=== PATIENT | male | born 1950 | race Caucasian/White ===

== ENCOUNTER 2021-12-12 18:25 | Inpatient (IN) ==
[2021-12-12] MEDS: 0.9 % Sodium Chloride 1,000 ML IVC SCH ×2 (19:05→19:51)
[2021-12-12 19:06] LABS: Basophils % 0.4 %; Eosinophils # 0.1 K/mcL (0.0-0.6); Eosinophils % 0.9 %; Hematocrit 33.7 % (37.5-50.1); Hemoglobin 11.8 g/dL (12.9-16.9); Immature Granulocytes % 1.1 % (0-4); Lymphocytes # 2.1 K/mcL (0.6-4.6); Lymphocytes % 21.8 %; Mean Corpuscular Hemoglobin 35.8 pg (28.0-33.3); Mean Corpuscular Volume 102.1 fL (83.0-100.0); Mean Platelet Volume 9.4 fL (9.4-12.4); Monocytes # 0.9 K/mcL (0.0-1.3); Monocytes % 9.4 %; Neutrophils # 6.4 K/mcL (1.6-8.9); Platelet Count 262 K/mcL (140-400); Red Cell Distribution Width 12.9 % (11.5-14.5); Segmented Neutrophils % 66.4 %; White Blood Count 9.6 K/mcL (4.3-11.1)
[2021-12-12 19:32] LABS: INR 1.1; Prothrombin Time 12.1 Seconds (9.4-12.1)
[2021-12-12 19:34] LABS: Activated Partial Thrombo Time 23.7 Seconds (26.0-36.0)
[2021-12-12 19:36] LABS: BUN/Creatinine Ratio 7 (6-26); Blood Urea Nitrogen 19 mg/dL (8-23); Calcium 7.7 mg/dL (8.6-10.3); Carbon Dioxide 22 mEq/L (23-29); Chloride 109 mEq/L (98-107); Glucose 89 mg/dL (70-105); Osmolality,Calculated 292 (280-300); Potassium 3.7 mEq/L (3.5-5.1); Sodium 140 mEq/L (136-145); Troponin I < 0.03 ng/mL (< 0.04); eGFR For African Americans 27 (> 60); eGFR For Non-African Americans 22 (> 60)
[2021-12-12] MEDS ORDERED: Acetaminophen 325 MG TABLET PO PRN (22:26)
[2021-12-12] MEDS ORDERED: Naloxone 0.4 MG/ML INJ IVP PRN (22:26)
[2021-12-12] MEDS ORDERED: Melatonin 3 MG TABLET PO PRN (22:26)
[2021-12-12] MEDS ORDERED: Ondansetron 4 MG/2 ML VIAL IVP PRN (22:26)
[2021-12-12] MEDS ORDERED: 0.9 % Sodium Chloride 1,000 ML IVC SCH (22:30)
[2021-12-12] MEDS ORDERED: Calcium Gluconate 1gm/50mL 1 GM/50 ML BAG IVPB ONE (22:30)
[2021-12-12] MEDS ORDERED: 0.9 % Sodium Chloride 1,000 ML IVC ONE (23:24)
[2021-12-13] MEDS ORDERED: *HR* LORazepam 2 MG/ML VIAL IVP PRN ×3 (00:17)
[2021-12-13] MEDS: 0.9 % Sodium Chloride 1,000 ML IVC SCH ×2 (02:24→09:14)
[2021-12-13 04:43] LABS: Basophils % 0.2 %; Eosinophils % 0.3 %; Hematocrit 32.7 % (37.5-50.1); Hemoglobin 10.9 g/dL (12.9-16.9); Immature Granulocytes % 0.6 % (0-4); Lymphocytes # 2.6 K/mcL (0.6-4.6); Lymphocytes % 25.8 %; Mean Corpuscular HGB Conc 33.3 g/dL (31.6-35.5); Mean Corpuscular Hemoglobin 34.5 pg (28.0-33.3); Mean Corpuscular Volume 103.5 fL (83.0-100.0); Mean Platelet Volume 9.7 fL (9.4-12.4); Monocytes # 0.9 K/mcL (0.0-1.3); Monocytes % 8.4 %; Neutrophils # 6.6 K/mcL (1.6-8.9); Platelet Count 238 K/mcL (140-400); Red Blood Count 3.16 M/mcL (4.19-5.50); Segmented Neutrophils % 64.7 %; White Blood Count 10.2 K/mcL (4.3-11.1)
[2021-12-13 04:50] LABS: INR 1.1; Prothrombin Time 12.2 Seconds (9.4-12.1)
[2021-12-13 05:05] LABS: Alanine Aminotransferase 5 Units/L (7-52); Albumin 2.4 g/dL (3.5-5.7); Albumin/Globulin Ratio 1.1 (1.1-2.2); Alkaline Phosphatase 59 Units/L (34-104); Aspartate Amino Transferase 13 Units/L (13-39); BUN/Creatinine Ratio 9 (6-26); Bilirubin,Total 0.5 mg/dL (0.3-1.0); Blood Urea Nitrogen 16 mg/dL (8-23); Calcium 7.2 mg/dL (8.6-10.3); Carbon Dioxide 19 mEq/L (23-29); Chloride 117 mEq/L (98-107); Globulin 2.2 g/dL (2.4-3.5); Glucose 83 mg/dL (70-105); Osmolality,Calculated 292 (280-300); Phosphorous 2.8 mg/dL (2.7-4.5); Potassium 4.2 mEq/L (3.5-5.1); Sodium 141 mEq/L (136-145); Total Protein 4.6 g/dL (6.4-8.9); Troponin I < 0.03 ng/mL (< 0.04); eGFR For African Americans 47 (> 60); eGFR For Non-African Americans 39 (> 60)
[2021-12-13] MEDS ORDERED: 0.9 % Sodium Chloride 1,000 ML IVC ONE (06:00)
[2021-12-13] MEDS ORDERED: Perflutren Lipid Microsphere 1.3 ML in 0.9 % Sodium Chloride 8.7 ML IVP PRN ×2 (07:38→15:52)
[2021-12-13 08:02] LABS: Bacteria,Urine Moderate per hpf (None-Few); Bilirubin,Urine Negative (Negative); Blood,Urine Trace (Negative); Clarity,Urine Turbid (Clear); Color,Urine Yellow (Yellow); Glucose,Urine (UA) Normal (Normal); Hyaline Casts,Urine Few per lpf (None Seen); Ketones,Urine Trace mg/dL (Negative); Leukocyte Esterase,Urine Large (Negative); Mucus,Urine Few per lpf (None-Few); Nitrite,Urine Negative (Negative); Protein,Urine 30 mg/dL (Neg-Trace); RBC,Urine 0-3 per hpf (0-3); Specific Gravity,Urine 1.022 (1.010-1.025); Squamous Epithelial Cell,Urine Few per hpf (None-Few); Transitional Epi Cells,Urine Few per hpf (None-Few); WBC,Urine 30-50 per hpf (0-3)
[2021-12-13 08:08] LABS: Sodium, Urine 63.4 mEq/L
[2021-12-13] MEDS ORDERED: Ringers Solution, Lactated 500 ML IVC ONE (15:09)
[2021-12-13] MEDS: Ringers Solution, Lactated 1,000 ML IVC SCH (16:21)
[2021-12-13 17:57] LABS: Adenovirus Not Detected (Not Detect); Bordetella Pertussis Not Detected (Not Detect); Chlamydophila pneumoniae Not Detected (Not Detect); Coronavirus 229E Not Detected (Not Detect); Coronavirus HKU1 Not Detected (Not Detect); Coronavirus NL63 Not Detected (Not Detect); Coronavirus OC43 Not Detected (Not Detect); Human Metapneumovirus Not Detected (Not Detect); Human Rhinovirus/Enterovirus Not Detected (Not Detect); Influenza A Subtype 2009 H1 Not Detected (Not Detect); Influenza B Not Detected (Not Detect); Mycoplasma pneumoniae Not Detected (Not Detect); Parainfluenza Virus 1 Not Detected (Not Detect); Parainfluenza Virus 2 Not Detected (Not Detect); Parainfluenza Virus 3 Not Detected (Not Detect); Parainfluenza Virus 4 Not Detected (Not Detect); Respiratory Syncytial Virus Not Detected (Not Detect); SARS-CoV-2 Not Detected (Not Detect)
[2021-12-13 19:12] LABS: Hematocrit 29.3 % (37.5-50.1); Hemoglobin 10.1 g/dL (12.9-16.9)
[2021-12-13] MEDS: Thiamine (B-1) 100 MG, Folic Acid 1 MG, MVI, adult with vitamin K 10 ML in 0.9 % Sodi... IVPB SCH (20:25)
[2021-12-14] MEDS: Ringers Solution, Lactated 1,000 ML IVC SCH ×4 (01:24→22:47)
[2021-12-14] MEDS ORDERED: Ringers Solution, Lactated 500 ML IVC ONE ×2 (05:32→10:01)
[2021-12-14 05:44] LABS: Basophils % 0.2 %; Eosinophils # 0.1 K/mcL (0.0-0.6); Eosinophils % 1.1 %; Hematocrit 27.3 % (37.5-50.1); Hemoglobin 9.5 g/dL (12.9-16.9); Immature Granulocytes % 0.3 % (0-4); Lymphocytes # 2.1 K/mcL (0.6-4.6); Lymphocytes % 20.1 %; Mean Corpuscular HGB Conc 34.8 g/dL (31.6-35.5); Mean Corpuscular Hemoglobin 35.2 pg (28.0-33.3); Mean Corpuscular Volume 101.1 fL (83.0-100.0); Mean Platelet Volume 9.8 fL (9.4-12.4); Monocytes # 0.7 K/mcL (0.0-1.3); Monocytes % 6.8 %; Neutrophils # 7.5 K/mcL (1.6-8.9); Platelet Count 212 K/mcL (140-400); Red Cell Distribution Width 12.9 % (11.5-14.5); Segmented Neutrophils % 71.5 %; White Blood Count 10.4 K/mcL (4.3-11.1)
[2021-12-14 05:55] LABS: INR 1.2; Prothrombin Time 12.9 Seconds (9.4-12.1)
[2021-12-14 06:16] LABS: Alanine Aminotransferase 5 Units/L (7-52); Albumin 2.1 g/dL (3.5-5.7); Albumin/Globulin Ratio 1.1 (1.1-2.2); Alkaline Phosphatase 54 Units/L (34-104); Aspartate Amino Transferase 14 Units/L (13-39); BUN/Creatinine Ratio 14 (6-26); Bilirubin,Total 0.7 mg/dL (0.3-1.0); Blood Urea Nitrogen 10 mg/dL (8-23); Calcium 6.8 mg/dL (8.6-10.3); Carbon Dioxide 18 mEq/L (23-29); Chloride 115 mEq/L (98-107); Globulin 1.9 g/dL (2.4-3.5); Glucose 85 mg/dL (70-105); Magnesium 1.3 mg/dL (1.6-2.6); Osmolality,Calculated 284 (280-300); Potassium 3.7 mEq/L (3.5-5.1); Sodium 138 mEq/L (136-145); eGFR For African Americans > 60 (> 60); eGFR For Non-African Americans > 60 (> 60)
[2021-12-14 09:22] LABS: Thyroid Stimulating Hormone 0.244 mcIU/mL (0.340-5.600)
[2021-12-14 11:00] LABS: Triiodothyronine (T3) Free 1.55 pg/mL (2.50-3.90)
[2021-12-14 12:56] LABS: Bacteria,Urine Few per hpf (None-Few); Bilirubin,Urine Negative (Negative); Blood,Urine Small (Negative); Clarity,Urine Turbid (Clear); Color,Urine Yellow (Yellow); Glucose,Urine (UA) Normal (Normal); Ketones,Urine Negative (Negative); Leukocyte Esterase,Urine Small (Negative); Mucus,Urine Few per lpf (None-Few); Nitrite,Urine Negative (Negative); Protein,Urine Trace mg/dL (Neg-Trace); Specific Gravity,Urine 1.018 (1.010-1.025); Squamous Epithelial Cell,Urine Few per hpf (None-Few)
[2021-12-14] MEDS ORDERED: cefTRIAXone 1,000 MG in 0.9 % Sodium Chloride 10 ML IVPB SCH (13:00)
[2021-12-14] MEDS ORDERED: Calcium Gluconate 1gm/50mL 1 GM/50 ML BAG IVPB ONE (14:00)
[2021-12-14] MEDS: Thiamine (B-1) 100 MG, Folic Acid 1 MG, MVI, adult with vitamin K 10 ML in 0.9 % Sodi... IVPB SCH (17:23)
[2021-12-14] MEDS: Albumin Human 5% 12.5 GM/250 ML IV.SOLN IVC SCH ×2 (17:34→18:38)
[2021-12-15] MEDS ORDERED: Ipratropium/Albuterol Neb 3 ML IH ONE (04:16)
[2021-12-15 04:17] LABS: Basophils % 0.2 %; Eosinophils # 0.1 K/mcL (0.0-0.6); Eosinophils % 1.3 %; Hematocrit 25.5 % (37.5-50.1); Hemoglobin 9.1 g/dL (12.9-16.9); Immature Granulocytes % 0.4 % (0-4); Lymphocytes # 1.8 K/mcL (0.6-4.6); Lymphocytes % 17.7 %; Mean Corpuscular HGB Conc 35.7 g/dL (31.6-35.5); Mean Corpuscular Hemoglobin 35.3 pg (28.0-33.3); Mean Corpuscular Volume 98.8 fL (83.0-100.0); Mean Platelet Volume 9.8 fL (9.4-12.4); Monocytes # 0.9 K/mcL (0.0-1.3); Monocytes % 8.6 %; Neutrophils # 7.1 K/mcL (1.6-8.9); Platelet Count 223 K/mcL (140-400); Red Blood Count 2.58 M/mcL (4.19-5.50); Red Cell Distribution Width 12.4 % (11.5-14.5); Segmented Neutrophils % 71.8 %; White Blood Count 9.9 K/mcL (4.3-11.1)
[2021-12-15 05:00] LABS: Alanine Aminotransferase 4 Units/L (7-52); Albumin 2.5 g/dL (3.5-5.7); Albumin/Globulin Ratio 1.6 (1.1-2.2); Alkaline Phosphatase 49 Units/L (34-104); Aspartate Amino Transferase 12 Units/L (13-39); BUN/Creatinine Ratio 11 (6-26); Bilirubin,Total 0.5 mg/dL (0.3-1.0); Blood Urea Nitrogen 6 mg/dL (8-23); Calcium 7.3 mg/dL (8.6-10.3); Carbon Dioxide 21 mEq/L (23-29); Chloride 113 mEq/L (98-107); Globulin 1.6 g/dL (2.4-3.5); Glucose 89 mg/dL (70-105); Magnesium 1.4 mg/dL (1.6-2.6); Osmolality,Calculated 285 (280-300); Potassium 3.5 mEq/L (3.5-5.1); Sodium 139 mEq/L (136-145); Total Protein 4.1 g/dL (6.4-8.9); eGFR For African Americans > 60 (> 60); eGFR For Non-African Americans > 60 (> 60)
[2021-12-15 05:25] LABS: Folate > 22.3 ng/mL (3.0-16.0); Vitamin B12 289 pg/mL (250-1100)
[2021-12-15] MEDS ORDERED: Calcium Gluconate 1gm/50mL 1 GM/50 ML BAG IVPB ONE (07:40)
[2021-12-15] MEDS ORDERED: Ringers Solution, Lactated 1,000 ML IVC SCH (07:45)
[2021-12-15] MEDS: Piperacillin/Tazobactam 3.375 GM in 0.9 % Sodium Chloride Mini Bag 100 ML IVPB SCH ×2 (09:38→15:58)
[2021-12-15] MEDS: Thiamine (B-1) 100 MG, Folic Acid 1 MG, MVI, adult with vitamin K 10 ML in 0.9 % Sodi... IVPB SCH (17:11)
[2021-12-16] MEDS: Piperacillin/Tazobactam 3.375 GM in 0.9 % Sodium Chloride Mini Bag 100 ML IVPB SCH ×3 (03:32→16:16)
[2021-12-16 05:05] LABS: Basophils % 0.2 %; Eosinophils # 0.1 K/mcL (0.0-0.6); Eosinophils % 1.2 %; Hematocrit 26.8 % (37.5-50.1); Hemoglobin 9.3 g/dL (12.9-16.9); Immature Granulocytes % 0.4 % (0-4); Lymphocytes # 1.4 K/mcL (0.6-4.6); Lymphocytes % 11.7 %; Mean Corpuscular HGB Conc 34.7 g/dL (31.6-35.5); Mean Corpuscular Hemoglobin 34.4 pg (28.0-33.3); Mean Corpuscular Volume 99.3 fL (83.0-100.0); Mean Platelet Volume 9.2 fL (9.4-12.4); Monocytes # 1.2 K/mcL (0.0-1.3); Monocytes % 9.7 %; Neutrophils # 9.3 K/mcL (1.6-8.9); Platelet Count 242 K/mcL (140-400); Red Cell Distribution Width 12.8 % (11.5-14.5); Segmented Neutrophils % 76.8 %; White Blood Count 12.1 K/mcL (4.3-11.1)
[2021-12-16 05:17] LABS: Alanine Aminotransferase 5 Units/L (7-52); Albumin 2.4 g/dL (3.5-5.7); Albumin/Globulin Ratio 1.2 (1.1-2.2); Alkaline Phosphatase 52 Units/L (34-104); Aspartate Amino Transferase 12 Units/L (13-39); BUN/Creatinine Ratio 8 (6-26); Bilirubin,Total 0.6 mg/dL (0.3-1.0); Blood Urea Nitrogen 4 mg/dL (8-23); Calcium 7.6 mg/dL (8.6-10.3); Carbon Dioxide 22 mEq/L (23-29); Chloride 111 mEq/L (98-107); Glucose 99 mg/dL (70-105); Magnesium 1.8 mg/dL (1.6-2.6); Osmolality,Calculated 283 (280-300); Potassium 3.6 mEq/L (3.5-5.1); Sodium 138 mEq/L (136-145); Total Protein 4.4 g/dL (6.4-8.9); eGFR For African Americans > 60 (> 60); eGFR For Non-African Americans > 60 (> 60)
[2021-12-16] MEDS ORDERED: Potassium Chloride Elixir 20 MEQ/15 ML UDC PO ONE (07:18)
[2021-12-16] MEDS: Magnesium Oxide 400 MG TABLET PO SCH (08:00)
[2021-12-16] MEDS ORDERED: Furosemide 20 MG/2 ML VIAL IVP ONE (09:06)
[2021-12-16] MEDS ORDERED: Ipratropium Neb 0.5 MG NEBULIZER IH PRN (09:17)
[2021-12-16] MEDS ORDERED: Calcium Gluconate 1gm/50mL 1 GM/50 ML BAG IVPB ONE (09:18)
[2021-12-16] MEDS: Ipratropium/Albuterol Neb 3 ML IH SCH ×4 (11:01→23:15)
[2021-12-16] MEDS ORDERED: E-Z-HD (BARIUM SULF) SUSPENSION PO ONE (12:37)
[2021-12-16] MEDS: E-Z-PAQUE (BARIUM SULF) SUSP 1 BOTTLE PO ONE (12:40)
[2021-12-16] MEDS: *HR* Heparin 5,000 UNIT/ML VIAL SQ SCH (18:23)
[2021-12-17] MEDS: Piperacillin/Tazobactam 3.375 GM in 0.9 % Sodium Chloride Mini Bag 100 ML IVPB SCH ×3 (00:36→16:03)
[2021-12-17] MEDS: Ipratropium/Albuterol Neb 3 ML IH SCH ×6 (03:37→23:05)
[2021-12-17] MEDS: *HR* Heparin 5,000 UNIT/ML VIAL SQ SCH ×2 (06:01→16:03)
[2021-12-17 07:02] LABS: Basophils % 0.2 %; Eosinophils # 0.3 K/mcL (0.0-0.6); Hematocrit 24.6 % (37.5-50.1); Hemoglobin 8.6 g/dL (12.9-16.9); Immature Granulocytes % 0.3 % (0-4); Lymphocytes # 1.3 K/mcL (0.6-4.6); Lymphocytes % 14.5 %; Mean Corpuscular Hemoglobin 34.4 pg (28.0-33.3); Mean Corpuscular Volume 98.4 fL (83.0-100.0); Mean Platelet Volume 9.4 fL (9.4-12.4); Monocytes # 1.1 K/mcL (0.0-1.3); Monocytes % 12.2 %; Neutrophils # 6.3 K/mcL (1.6-8.9); Platelet Count 253 K/mcL (140-400); Red Cell Distribution Width 12.6 % (11.5-14.5); Segmented Neutrophils % 69.8 %
[2021-12-17 07:18] LABS: Alanine Aminotransferase 5 Units/L (7-52); Albumin 2.2 g/dL (3.5-5.7); Albumin/Globulin Ratio 1.2 (1.1-2.2); Alkaline Phosphatase 43 Units/L (34-104); Aspartate Amino Transferase 11 Units/L (13-39); BUN/Creatinine Ratio 10 (6-26); Bilirubin,Total 0.5 mg/dL (0.3-1.0); Blood Urea Nitrogen 6 mg/dL (8-23); Calcium 7.5 mg/dL (8.6-10.3); Carbon Dioxide 27 mEq/L (23-29); Chloride 109 mEq/L (98-107); Globulin 1.9 g/dL (2.4-3.5); Glucose 81 mg/dL (70-105); Magnesium 1.4 mg/dL (1.6-2.6); Osmolality,Calculated 287 (280-300); Potassium 3.7 mEq/L (3.5-5.1); Sodium 140 mEq/L (136-145); Total Protein 4.1 g/dL (6.4-8.9); eGFR For African Americans > 60 (> 60); eGFR For Non-African Americans > 60 (> 60)
[2021-12-17] MEDS: Magnesium Oxide 400 MG TABLET PO SCH (08:59)
[2021-12-17] MEDS ORDERED: Furosemide 20 MG/2 ML VIAL IVP ONE (10:55)
[2021-12-18] MEDS: Piperacillin/Tazobactam 3.375 GM in 0.9 % Sodium Chloride Mini Bag 100 ML IVPB SCH ×3 (00:10→18:18)
[2021-12-18] MEDS: Ipratropium/Albuterol Neb 3 ML IH SCH ×6 (03:36→23:48)
[2021-12-18 05:52] LABS: Basophils % 0.2 %; Eosinophils # 0.2 K/mcL (0.0-0.6); Eosinophils % 2.2 %; Hematocrit 24.3 % (37.5-50.1); Hemoglobin 8.6 g/dL (12.9-16.9); Immature Granulocytes % 0.2 % (0-4); Lymphocytes # 1.5 K/mcL (0.6-4.6); Lymphocytes % 17.9 %; Mean Corpuscular HGB Conc 35.4 g/dL (31.6-35.5); Mean Corpuscular Hemoglobin 34.8 pg (28.0-33.3); Mean Corpuscular Volume 98.4 fL (83.0-100.0); Mean Platelet Volume 9.5 fL (9.4-12.4); Monocytes # 1.1 K/mcL (0.0-1.3); Monocytes % 12.9 %; Neutrophils # 5.4 K/mcL (1.6-8.9); Platelet Count 271 K/mcL (140-400); Red Blood Count 2.47 M/mcL (4.19-5.50); Red Cell Distribution Width 12.7 % (11.5-14.5); Segmented Neutrophils % 66.6 %; White Blood Count 8.1 K/mcL (4.3-11.1)
[2021-12-18 06:11] LABS: Alanine Aminotransferase 5 Units/L (7-52); Albumin 2.2 g/dL (3.5-5.7); Albumin/Globulin Ratio 1.2 (1.1-2.2); Alkaline Phosphatase 44 Units/L (34-104); Aspartate Amino Transferase 12 Units/L (13-39); BUN/Creatinine Ratio 10 (6-26); Bilirubin,Total 0.5 mg/dL (0.3-1.0); Blood Urea Nitrogen 6 mg/dL (8-23); Calcium 7.6 mg/dL (8.6-10.3); Carbon Dioxide 29 mEq/L (23-29); Chloride 105 mEq/L (98-107); Globulin 1.9 g/dL (2.4-3.5); Glucose 78 mg/dL (70-105); Magnesium 1.6 mg/dL (1.6-2.6); Osmolality,Calculated 286 (280-300); Potassium 3.4 mEq/L (3.5-5.1); Sodium 140 mEq/L (136-145); Total Protein 4.1 g/dL (6.4-8.9); eGFR For African Americans > 60 (> 60); eGFR For Non-African Americans > 60 (> 60)
[2021-12-18] MEDS: *HR* Heparin 5,000 UNIT/ML VIAL SQ SCH ×2 (06:36→18:17)
[2021-12-18] MEDS ORDERED: Lidocaine -MPF 2% 5 ML VIAL ONE (09:37)
[2021-12-18] MEDS ORDERED: Ondansetron 4 MG/2 ML VIAL ONE (09:41)
[2021-12-18] MEDS ORDERED: Lidocaine HCL 4 ML Topical Solution (Laryng-O-Jet Kit Sterile Pak) TP ONE (09:42)
[2021-12-18 18:56] LABS: Alanine Aminotransferase 7 Units/L (7-52); Albumin 2.9 g/dL (3.5-5.7); Alkaline Phosphatase 53 Units/L (34-104); Aspartate Amino Transferase 20 Units/L (13-39); BUN/Creatinine Ratio 12 (6-26); Bilirubin,Total 0.5 mg/dL (0.3-1.0); Blood Urea Nitrogen 7 mg/dL (8-23); Calcium 8.4 mg/dL (8.6-10.3); Carbon Dioxide 26 mEq/L (23-29); Chloride 103 mEq/L (98-107); Globulin 2.8 g/dL (2.4-3.5); Glucose 133 mg/dL (70-105); Osmolality,Calculated 288 (280-300); Potassium 4.2 mEq/L (3.5-5.1); Sodium 139 mEq/L (136-145); Total Protein 5.7 g/dL (6.4-8.9); eGFR For African Americans > 60 (> 60); eGFR For Non-African Americans > 60 (> 60)
[2021-12-19] MEDS: Piperacillin/Tazobactam 3.375 GM in 0.9 % Sodium Chloride Mini Bag 100 ML IVPB SCH ×4 (00:12→23:45)
[2021-12-19 02:41] LABS: Basophils % 0.1 %; Hematocrit 24.4 % (37.5-50.1); Hemoglobin 8.6 g/dL (12.9-16.9); Immature Granulocytes % 0.4 % (0-4); Lymphocytes # 0.5 K/mcL (0.6-4.6); Mean Corpuscular HGB Conc 35.2 g/dL (31.6-35.5); Mean Corpuscular Volume 99.2 fL (83.0-100.0); Mean Platelet Volume 9.5 fL (9.4-12.4); Monocytes # 0.4 K/mcL (0.0-1.3); Monocytes % 5.5 %; Neutrophils # 6.8 K/mcL (1.6-8.9); Platelet Count 294 K/mcL (140-400); Red Blood Count 2.46 M/mcL (4.19-5.50); Red Cell Distribution Width 12.6 % (11.5-14.5); White Blood Count 7.7 K/mcL (4.3-11.1)
[2021-12-19 03:06] LABS: BUN/Creatinine Ratio 18 (6-26); Blood Urea Nitrogen 11 mg/dL (8-23); Calcium 7.8 mg/dL (8.6-10.3); Carbon Dioxide 27 mEq/L (23-29); Chloride 106 mEq/L (98-107); Glucose 151 mg/dL (70-105); Osmolality,Calculated 288 (280-300); Potassium 3.7 mEq/L (3.5-5.1); Sodium 138 mEq/L (136-145); eGFR For African Americans > 60 (> 60); eGFR For Non-African Americans > 60 (> 60)
[2021-12-19] MEDS: Ipratropium/Albuterol Neb 3 ML IH SCH ×6 (04:09→22:49)
[2021-12-19] MEDS: *HR* Heparin 5,000 UNIT/ML VIAL SQ SCH ×2 (05:43→16:50)
[2021-12-19 11:30] LABS: RBC,Pleural Fluid < 2000 RBC/mcL
[2021-12-19] MEDS ORDERED: E-Z-PAQUE (BARIUM SULF) SUSP 1 BOTTLE PO ONE (12:32)
[2021-12-19] MEDS ORDERED: E-Z-HD (BARIUM SULF) SUSPENSION PO ONE (12:32)
[2021-12-19] MEDS: E-Z-PAQUE (BARIUM SULF) SUSP 1 BOTTLE PO ONE (12:36)
[2021-12-19 12:38] LABS: Basophils,Pleural Fluid 0 %; Eosinophils,Pleural Fluid 0 %; Monocytes,Pleural Fluid 0 %
[2021-12-19 12:40] LABS: Appearance of Pleural Fl Clear (Clear)
[2021-12-19 12:48] LABS: Glucose,Pleural Fluid 82 mg/dL (No Ref Range); LDH,Pleural Fluid 33 Units/L (No Ref Range); Total Protein,Pleural Fluid < 2.0 g/dL
[2021-12-20 03:13] LABS: Basophils % 0.1 %; Eosinophils % 0.2 %; Hematocrit 23.5 % (37.5-50.1); Hemoglobin 8.2 g/dL (12.9-16.9); Immature Granulocytes % 0.5 % (0-4); Lymphocytes # 1.6 K/mcL (0.6-4.6); Lymphocytes % 13.2 %; Mean Corpuscular HGB Conc 34.9 g/dL (31.6-35.5); Mean Corpuscular Hemoglobin 34.6 pg (28.0-33.3); Mean Corpuscular Volume 99.2 fL (83.0-100.0); Mean Platelet Volume 9.2 fL (9.4-12.4); Monocytes # 0.9 K/mcL (0.0-1.3); Monocytes % 7.5 %; Neutrophils # 9.7 K/mcL (1.6-8.9); Platelet Count 329 K/mcL (140-400); Red Blood Count 2.37 M/mcL (4.19-5.50); Segmented Neutrophils % 78.5 %
[2021-12-20 03:14] LABS: White Blood Count 12.3 K/mcL (4.3-11.1)
[2021-12-20 03:32] LABS: BUN/Creatinine Ratio 22 (6-26); Blood Urea Nitrogen 14 mg/dL (8-23); Calcium 7.9 mg/dL (8.6-10.3); Carbon Dioxide 29 mEq/L (23-29); Chloride 107 mEq/L (98-107); Glucose 97 mg/dL (70-105); Osmolality,Calculated 290 (280-300); Potassium 3.5 mEq/L (3.5-5.1); Sodium 140 mEq/L (136-145); eGFR For African Americans > 60 (> 60); eGFR For Non-African Americans > 60 (> 60)
[2021-12-20] MEDS: Ipratropium/Albuterol Neb 3 ML IH SCH ×4 (04:07→16:24)
[2021-12-20] MEDS: *HR* Heparin 5,000 UNIT/ML VIAL SQ SCH (05:13)
[2021-12-20] MEDS: Piperacillin/Tazobactam 3.375 GM in 0.9 % Sodium Chloride Mini Bag 100 ML IVPB SCH (07:44)
[2021-12-20 14:04] VITALS: BP 110/69; PULSE 108; TEMP 97.9; O2SAT 90
[2021-12-22 10:04] LABS: Influenza A PCR Body Fluid NOT DETECTED; Influenza B PCR Body Fluid NOT DETECTED; RVP Body Fluid Source BRONCHIAL WASH
[2021-12-22 10:29] LABS: RSV PCR Body Fluid NOT DETECTED
[2021-12-23 12:45] LABS: HSV Source BRONCH WASH
== END 2021-12-20 16:30 | disposition home health service (06) | DRG 871 ==
LOC: EMEROOARM 18:25 → 2ANU 18:25 → ICNU 12-13 17:38 → SUATTDRO 12-14 14:23 → 2ANU 12-16 21:09
PROVIDERS: ADMIT Internal Medicine; ATTEND General Practice